=== PATIENT | female | born 1970 | race Caucasian/White ===

== ENCOUNTER 2021-01-21 15:26 | Emergency (ER) | payer OTHER, SELFPAY ==
[2021-01-21 15:47] VITALS: BP 107/63; PULSE 108; RESP 14; TEMP 37.1; O2SAT 99
--- NOTE | 2021-01-21 16:55 | ED.GENADULT ---
HPI - General Adult General Chief complaint: Ear Stated complaint: ear issues,fever Source: patient and RN notes reviewed Mode of arrival: ambulatory History of Present Illness HPI narrative: This is a 51-year-old female who presented to urgent care with complaints of buzzing in her ears, congestion, runny nose, body aches, fever, frontal pain. According to patient she went to her primary care physician office a couple of days and they kicked her out because they were afraid that she had Covid. Patient states she has been suffering with the symptoms for approximately 10 to 15 days. The patient denies SOB, CP, palpitation, extremity numbness, lightheadedness, dizziness, constipation, diarrhea, chills, or fever. Related Data Home Medications Medication Instructions Recorded Confirmed buspirone 10 mg PO BID 01/21/21 01/21/21 cetirizine [Zyrtec] 10 mg PO DAILY 01/21/21 01/21/21 duloxetine 60 mg PO DAILY 01/21/21 01/21/21 gabapentin 300 mg PO BID 01/21/21 01/21/21 lovastatin 20 mg PO DAILY 01/21/21 01/21/21 metformin 500 mg PO BID 01/21/21 01/21/21 Allergies Allergy/AdvReac Type Severity Reaction Status Date / Time Sulfa (Sulfonamide Allergy Intermediate rash Verified 11/27/17 11:53 Antibiotics) Contrast Media Allergy Intermediate Itching Uncoded 01/21/21 16:04 Review of Systems Review of Systems: A 14 organ system Review of Systems was performed and pertinent positives included in the HPI, otherwise remaining ROS is negative. [facility] Family History Family History (Updated 01/21/21 @ 16:57 by TAMICA Velez-C) Other Family history non-contributory Exam Narrative: GENERAL: This is a well-nourished, well-developed patient, in no apparent distress. HEAD: normocephalic, atraumatic. Frontal lobe tenderness EYES: PERRL. Sclera clear/white. Vision is grossly intact. EARS: External ears normal, auditory canals clear and without drainage, TMs normal without perforation. Hearing grossly intact. NOSE: External nose normal with no obvious nasal discharge, nares without redness, no rhinorrhea. THROAT: Mucous membranes moist, posterior pharynx clear. NECK: Neck supple, non-tender without lymphadenopathy, masses or thyromegaly. CARDIOVASCULAR: Regular rate and rhythm without murmurs, gallops, or rubs. RESPIRATORY: Clear to auscultation. Breath sounds equal bilaterally. No wheezes, rales, or rhonchi. GASTROINTESTINAL: Abdomen soft, non-tender, nondistended. Bowel sounds are active. No hepato-splenomegaly, or palpable masses. No guarding. SKIN: warm, intact with no suspicious lesions or rash, good texture and turgor. NEURO: awake, alert, and oriented to person, place and time. There were no obvious focal neurologic abnormalities. Steady gait EXTREMITIES: Normal range of motion. No edema. No calf tenderness. Negative Homans sign bilaterally. BACK: Nontender without deformity or crepitance. No flank tenderness. Course Course Emergency Course: Patient will discharge home with Augmentin, Tessalon Perles, guaifenesin, and Flonase to treat sinusitis Vital Signs Vital signs: Vital Signs Temperature 98.8 F 01/21/21 15:47 Pulse Rate 108 H 01/21/21 15:47 Respiratory Rate 14 01/21/21 15:47 Blood Pressure 107/63 01/21/21 15:47 Pulse Oximetry 99 01/21/21 15:47 Temperature 98.8 F 01/21/21 15:47 Pulse Rate 108 H 01/21/21 15:47 Respiratory Rate 14 01/21/21 15:47 Blood Pressure 107/63 01/21/21 15:47 Pulse Oximetry 99 01/21/21 15:47 Medical Decision Making Differential Diagnosis Differential Diagnosis: sinusitis versus viral illness versus common cold Vital Signs Vital Signs: Vital Signs Temperature 98.8 F 01/21/21 15:47 Pulse Rate 108 H 01/21/21 15:47 Respiratory Rate 14 01/21/21 15:47 Blood Pressure 107/63 01/21/21 15:47 Pulse Oximetry 99 01/21/21 15:47 Temperature 98.8 F 01/21/21 15:47 Pulse Rate 108 H 01/21/21 15:47 Respiratory Rate 14 01/21/21 15:47 Bloo
== END 2021-01-21 16:58 | disposition home or self-care (01) ==
PROVIDERS: Emergency Provider Nurse Practitioner; PCP Internal Medicine
DX: J01.10 Acute frontal sinusitis, unspecified (principal)
CPT/HCPCS: 99203; G0463